=== PATIENT | female | born 1985 | race Asian ===

== ENCOUNTER 2016-12-18 19:38 | Emergency (ER) | payer OTHER ==
--- NOTE | 2016-12-18 19:45 | PDOC ---
History of Present Illness - General History Source: Patient Exam Limitations: No Limitations - History of Present Illness Initial Comments: 12/18/16 20:11 A portion of this note was documented by scribe services under my direction. I have reviewed the details of the note, within reason, and agree with the documentation. The case summary and management plan written by me. Assessment and plan: This is a 31-year-old female who comes in complaining of 3 days of the fever chills body aches sore throat and the lesions in her posterior oropharynx and mouth. Patient had rapid strep done that was negative Patient had a Monospot sent that wont be done until tomorrow. Patient's CBC otherwise showed a white count of 11.3 with no left shift. Given the lesions in patient's oropharynx and mouth most likely this is secondary to a coxsackie-type virus Patient was told to continue Tylenol and Motrin alternate them as often as every 3 hours as needed for pain and fevers and called the ER tomorrow afternoon for the result of her mono test. <Lisa Olivares I - Last Filed: 12/18/16 20:54> - General History Source: Patient Exam Limitations: No Limitations - History of Present Illness Initial Comments: 12/18/16 20:54 Patient is a 31 year old female with a significant past medical history of Gastroparises who presents to the ED with complaints of sore throat that began 3 days ago. Patient reports sore throat began saturday afternoon suddenly while at home. She reports experiencing fever secondary to sore throat. Patient states experiencing joint pains and what she states pins and needles in her bones secondary to sore throat. She reports experiencing fever and mouth sores secondary to sore throat. Patient states she has a Hx of strep throat. Denies chest pain, SOB. Denies chills, sweating. Denies contact with sick individuals, out of state travel. Denies any other symptoms. Allergies: None Surgical history: None Social history: No smoking. No alcohol. No illicit drugs. PMD: None <Justin Espinoza - Last Filed: 12/18/16 20:55> - General Chief Complaint: Pain Stated Complaint: FLU TYPE SYMPTOMS,SORE THROAT Time Seen by Provider: 12/18/16 19:45 Past History - Past Medical History Anemia: No Asthma: No Cancer: No Cardiac Disorders: No GI Disorders: Yes (GASTROPARISES) - Surgical History Abdominal Surgery: No Appendectomy: No Cardiac Surgery: No Cholecystectomy: No - Suicide/Smoking/Psychosocial Hx Smoking Status: No Smoking History: Never smoked Have you smoked in the past 12 months: No Number of Cigarettes Smoked Daily: 0 Hx Alcohol Use: No Drug/Substance Use Hx: No Hx Substance Use Treatment: No <Lisa Olivares I - Last Filed: 12/18/16 20:54> <Justin Espinoza - Last Filed: 12/18/16 20:55> - Past Medical History Allergies/Adverse Reactions: Allergies Allergy/AdvReac Type Severity Reaction Status Date / Time No Known Allergies Allergy Verified 12/18/16 19:39 Home Medications: Ambulatory Orders No Home Medications 0 dose .ROUTE UTDICT 07/09/12 Review of Systems - Review of Systems Able to Perform ROS?: Yes Comments:: 12/18/16 20:55 General: +Fever No chills, no weakness, no weight loss HEENT: +Sore throat. +Mouth sores. No change in vision. No ear pain CardioVascular: No chest pain or shortness of breath Respiratory:No cough, or wheezing. Gastrointestinal: no nausea, vomiting, diarrhea or constipation, No rectal bleeding Genitourinary: No dysuria, hematuria, or frequency Musculoskeletal: No joint or muscle pain or swelling Neurologic: No headache, vertigo, dizziness or loss of consciousness Psychiatric: nor depression Skin: No rashes or easy bruising Endocrine: no increased thirst or abnormal weight change Allergic: no skin or latex allergy All other systems reviewed and normal All Other Systems: Reviewed and Negative <Justin Espinoza - Last Filed: 12/18/16 20:55> *Physical Exam - Vital Signs Last Vital Signs Temp Pulse Resp BP Pulse Ox 99.1 F 98 H 16 124/74 100 12/18/16 19:42 12/18/16 19:42 12/18/16 19:42 12/18/16 19:42 12/18/16 19:42 - Physical Exam Comments: 12/18/16 20:55 GENERAL: The patient is awake, alert, and fully oriented, in no acute distress. HEAD: Normal with no signs of trauma. POSTERIOR OROPHARYNX: MOderate amount of erythema with vesicular lesions. + Vesicular lesions along base of tongue bilaterally. No exudates. NECK: submandibular lymphadenopathy bilaterally. EYES: Pupils equal, round and reactive to light, extraocular movements intact, sclera anicteric, conjunctiva clear. EXTREMITIES: Normal range of motion, no edema. NEUROLOGICAL: Normal speech, normal gait. PSYCH: Normal mood, normal affect. SKIN: Warm, Dry, normal turgor, no rashes or lesions noted. <Justin Espinoza - Last Filed: 12/18/16 20:55> ED Treatment Course - LABORATORY CBC & Chemistry Diagram: 12/18/16 20:05 <Lisa Olivares I - Last Filed: 12/18/16 20:54> - LABORATORY CBC & Chemistry Diagram: 12/18/16 20:05 - ADDITIONAL ORDERS Additional order review: 12/18/16 20:05 Group A Strep Rapid Antigen - Final Throat NEGATIVE FOR THE ANTIGEN OF BETA HEMOLYTIC STREP GROUP A 12/18/16 20:05 RBC 4.49 MCV 86.2 MCHC 34.0 RDW 12.1 MPV 7.8 Neutrophils % 71.3 Lymphocytes % 18.7 Monocytes % 8.8 Eosinophils % 0.7 Basophils % 0.5 - Medications Given in the ED: ED Medications Discontinued Medications Generic Name Dose Route Start Last Admin Trade Name Freq PRN Reason Stop Dose Admin Ibuprofen 600 mg 12/18/16 20:03 12/18/16 20:07 Motrin - PO 12/18/16 20:04 600 mg ONCE ONE Administration <Justin Espinoza - Last Filed: 12/18/16 20:55> *DC/Admit/Observation/Transfer <Lisa Olivares I - Last Filed: 12/18/16 20:54> - Attestations Scribe Attestion: 12/18/16 20:55 Documentation prepared by Justin Espinoza, acting as medical records technician for Lisa Olivares MD/DO. <Justin Espinoza - Last Filed: 12/18/16 20:55> Diagnosis at time of Disposition: Fever and chills Pharyngitis Qualifiers: Pharyngitis/tonsillitis etiology: Coxsackie virus Qualified Code(s): B08.5 - Enteroviral vesicular pharyngitis - Discharge Dispostion Disposition: HOME Condition at time of disposition: Stable - Patient Instructions Additional Instructions: The test we did for strep throat was negative however it is a rapid test and there is some false negative so it will be cultured and call in 2 days for the result of the culture. The Monospot will not be available until tomorrow afternoon U can call tomorrow afternoon for the result. Alternate acetaminophen with ibuprofen as often as every 3 hours for pain or fevers. You were given some prednisone in the emergency room this should help with the inflammatory response of your throat. Return to the emergency department immediately with ANY new, persistent or worsening symptoms. Continue any medications as previously prescribed by your physician. You should follow up with your primary doctor as soon as possible regarding today's emergency department visit. . Please make sure your doctor reviews the results of your emergency evaluation. Thank you for coming to the Emergency Department today for your care. It was a pleasure to see you today. Please note that your evaluation is INCOMPLETE until you follow-up with your doctor.
[2016-12-18 19:46] VITALS: BP 124/74; PULSE 98; TEMP 99.1; BMI 23.1
[2016-12-18] MEDS ORDERED: IBUPROFEN 600 MG TABLET (FP) PO ONE ×2 (20:03→20:06)
[2016-12-18 20:33] LABS: BASOPHIL 0.5 % (0-2.0); EOSINOPHIL 0.7 % (0-4.5); MCH 29.3 pg (25.7-33.7); MEAN CELL VOLUME 86.2 fl (80-96); MEAN PLT VOLUME 7.8 fl (7.5-11.1); NEUTROPHILS 71.3 % (42.8-82.8); PLATELET COUNT 285 K/MM3 (134-434); RDW 12.1 % (11.6-15.6); WHITE BLOOD COUNT 11.3 K/mm3 (4.0-10.8)
[2016-12-18] MEDS ORDERED: predniSONE 20 MG TABLET (UD) PO ONE (20:51)
[2016-12-18] MEDS ORDERED: predniSONE 20 MG TABLET (UD) ONE (21:00)
== END 2016-12-18 21:04 | disposition home or self-care (01) ==
LOC: FER 19:38
DX: B08.5 Enteroviral vesicular pharyngitis (principal); R50.9 Fever, unspecified; K92.9 Disease of digestive system, unspecified
CPT/HCPCS: 36415; 85025; 86308; 87070; 87430; 99281-25

== ENCOUNTER 2018-03-09 10:01 | Emergency (ER) | payer OTHER ==
--- NOTE | 2018-03-09 10:06 | PDOC ---
History of Present Illness - General Chief Complaint: Palpitations Stated Complaint: CHEST TIGHTNESS, PALPITATIONS. SOB Time Seen by Provider: 03/09/18 10:06 History Source: Patient, Old Records Exam Limitations: No Limitations - History of Present Illness Initial Comments: HPI: 32 y/o female presenting to [facility] complaining of chest tightness and palpitations. Pt states the chest tightness is episodic and progressive to the point where her bra becomes uncomfortable. Discomfort is localized to the sternum per pt. Endorses dry cough. Palpitations are brief and self resolving; lasts less than one minute. Estimates approx. 4 episodes per day. Unable to identify eliciting factors. Denies orthopnea, paroxysmal nocturnal dyspnea, or leg swelling. Denies recent surgeries, periods of immobilization, or calf tenderness. Pt takes control. Pts boyfriend, Dr. Kearns, expressed concern to the pt that she may have a PE. PCP: Dr. Larsen Medical Hx: - H/o Mitral Valve Regurgitation. Pt reports she had an Echo performed years ago but was never evaluated by a ticket sorter. Surgical Hx: - Pt denies past surgical history. Past History - Past Medical History Allergies/Adverse Reactions: Allergies Allergy/AdvReac Type Severity Reaction Status Date / Time No Known Allergies Allergy Verified 03/09/18 10:08 Home Medications: Ambulatory Orders No Home Medications 0 dose .ROUTE UTDICT 07/09/12 Control 03/09/18 Anemia: No Asthma: No Cancer: No Cardiac Disorders: No GI Disorders: Yes (GASTROPARISES) - Surgical History Abdominal Surgery: No Appendectomy: No Cardiac Surgery: No Cholecystectomy: No - Suicide/Smoking/Psychosocial Hx Smoking Status: No Smoking History: Never smoked Have you smoked in the past 12 months: No Number of Cigarettes Smoked Daily: 0 Hx Alcohol Use: No Drug/Substance Use Hx: No Substance Use Type: None Hx Substance Use Treatment: No Review of Systems - Review of Systems Able to Perform ROS?: Yes Comments:: In addition to that documented in the HPI above, the additional ROS was obtained : Constitutional: Denies fevers or chills Eyes: Denies vision changes ENMT: Denies sore throat CV: Endorses palpitations Resp: Endorses cough GI: Denies vomiting or diarrhea : Denies painful urination MSK: Endorses occasional leg cramping Skin: Denies new rashes Neuro: Denies new numbness or tingling or weakness Endocrine: Denies polyuria Heme: Denies bleeding or bruising *Physical Exam - Physical Exam Comments: Constitutional: Well-developed, well-nourished female in no acute distress or obvious discomfort. Found semi-fowlers on hospital bed. Initially observed walking unassisted into the department without difficulty or distress. Alert and oriented x4. Answered all questions appropriately and completely. Speech was non-labored, non-pressured. Head: Normocephalic. No obvious external signs of trauma. Eyes: Pupils 4mm and PERRL bilaterally. Sclerae white. Conjunctiva moist and not injected. EARS: Hearing grossly intact. NOSE: No nasal discharge. THROAT: Oral cavity and pharynx normal. No inflammation, swelling, exudate, or lesions. Teeth and gingiva in good general condition. Neck: Supple, trachea is midline. Cardiovascular/ Chest: Regular rate and regular rhythm. Clear heart tones. No murmur, rubs, clicks, or gallops. Peripheral pulses: radial pulses full. Anterior chest wall tenderness to palpation along R and L sternal border. Respiratory: Breathing unlabored. Equal chest rise and fall. Clear to auscultation bilaterally. No stridor, no wheezing, no rhonchi. Gastrointestinal: abdomen is soft, non-tender, non-distended. Neuro: Alert and oriented. Moving all four extremities spontaneously. Gait normal. Skin: Warm, dry, and intact. No bruising, rashes, or other lesions. Psych: Affect: appropriate. Mood: normal. ED Treatment Course - LABORATORY CBC & Chemistry Diagram: 03/09/18 10:55 03/09/18 10:55 Medical Decision Making - Medical Decision Making *Reviewed vital signs, nursing notes, and prior visit documentation (if available). 32 y/o previously healthy female presenting with reproducible anterior chest wall tenderness made worse with direct palpation and wearing a bra. Afebrile. Mildly tachycardic on triage vitals that resolved without intervention less than 10 minutes later. No tachypnea. Suspect costochondritis. Low suspicion for ACS, arrhythmia, PE, or pericardial effusion. Will administer ibuprofen. EKG: Sinus rhythm with a ventricular rate of 89 bpm. Normal axis. Normal intervals. No ST segment elevation or depression. No hyperacute T waves. No pathologic Q waves. Wells' Criteria for Pulmonary Embolism RESULT SUMMARY: 1.5 points Low risk group: 1.3% chance of PE in an ED population. Another study assigned scores ? 4 as PE Unlikely and had a 3% incidence of PE. INPUTS: Clinical signs and symptoms of DVT > 0 = No PE is #1 diagnosis OR equally likely > 0 = No Heart rate > 100 > 1.5 = Yes Immobilization at least 3 days OR surgery in the previous 4 weeks > 0 = No Previous, objectively diagnosed PE or DVT > 0 = No Hemoptysis > 0 = No Malignancy w/ treatment within 6 months or palliative > 0 = No Pt expressed further concern for PE to ED attending. Requested CTA to be further evaluated. Will obtain CBC, BMP, troponin, CTA, and urine . D- Dimer was not ordered as the test is a send out from this facility requiring >4 hours to result and pt requested radiologic study. CBC unremarkable for leukocytosis or anemia. BMP unremarkable for electrolyte derangement. eGFR >60. UPreg negative. CTA unremarkable for pulmonary embolism or acute pathology. Continue suspect costochondritis. Recommended OTC NSAIDs for symptom relief. Discussed imaging and laboratory results with pt. Answered all questions. Provided return precautions. Pt expressed verbal understanding and agreement with plan to discharge home with outpatient follow up. *DC/Admit/Observation/Transfer Diagnosis at time of Disposition: Chest pain, atypical - Discharge Dispostion Disposition: HOME Condition at time of disposition: Good Decision to Admit order: No - Referrals Referrals: Gonzalo Larsen MD [Primary Care Provider] - - Patient Instructions Printed Discharge Instructions: DI for Costochondritis Additional Instructions: You were seen today for chest pain. Your blood work, EKG, and xrays were normal today. Your symptoms are likely a condition for costochondritis. The pain should go away in the next several days. You can take over the counter Motrin or Advil as needed for pain. Take as directed on the package insert. Do not exceed the recommended dosage. You should follow up with your primary care doctor within the next week or as needed to make sure you are healing. You will need to call to make an appointment. Go to the nearest emergency department if your condition worsens or you feel like you need additional emergency evaluation. Print Language: LAO - Post Discharge Activity
[2018-03-09 10:27] VITALS: BP 140/87; PULSE 89; TEMP 98.8; BMI 22.4
[2018-03-09] MEDS ORDERED: IBUPROFEN 600 MG TABLET (FP) PO ONE ×2 (10:27→10:39)
--- NOTE | 2018-03-09 11:02 | PDOC ---
Attending Attestation - Resident Resident Name: Travis Alonzo - ED Attending Attestation I have performed the following: I have examined & evaluated the patient, The case was reviewed & discussed with the resident, I agree w/resident's findings & plan - HPI HPI: 03/09/18 10:56 32 y/o female with chest tightness and palpitations 4 days ago, denies fall or trauma or heavy lifting, now with some chest discomfort. Denies back pain, fever or chills. Mild cough. Has not taken anything for the pain. On BCP, non smoker, no long distance traveling, gets SOB occasionally doing minor things. As per her boyfriend who is a doctor he advised to have a CTA to r/o PE. No leg pain or swelling. Recent of her uncle 2 weeks ago. Sits for long periods. No hx of cancer. 03/09/18 11:17 - Physicial Exam PE: 03/09/18 11:02 VS stable HEENT: unremarkable HEART: RRR without murmur Lungs: CTA b/l no wheezes, rhonchi or rales, reproducible chest pain on palpation ABD: soft nontender +BS EXT: no C/C/E, no calf tenderness b/l Neuro: grossly intact, no focal deficits noted - Medical Decision Making 03/09/18 13:38 CT chest Neg for PE Will discharge home with Costochondritis Pt is in agreement with plan Marcie, rest EKG: rate 89, No STEMI Final Dx: Constochondritis In agreement with plan, discussed with Resident Dr. Alonzo
[2018-03-09 11:21] LABS: BASO % 0.4 % (0-2.0); EOS % 1.4 % (0-4.5); HEMATOCRIT 44.5 % (32.4-45.2); HEMOGLOBIN 15.1 GM/dl (10.7-15.3); MCH 29.6 pg (25.7-33.7); MCHC 33.8 g/dl (32.0-36.0); MEAN CELL VOLUME 87.5 fl (80-96); MEAN PLT VOLUME 8.1 fl (7.5-11.1); MONO % 3.9 % (3.8-10.2); NEUT % 68.3 % (42.8-82.8); PLATELET COUNT 322 K/MM3 (134-434); RBC 5.09 M/mm3 (3.60-5.2); RDW 11.9 % (11.6-15.6); WHITE BLOOD COUNT 9.9 K/mm3 (4.0-10.8)
[2018-03-09 11:22] LABS: ANION GAP 9 MMOL/L (8-16); BLOOD UREA NITROGEN 9 mg/dl (7-18); CALCIUM 9.7 mg/dl (8.4-10.2); CHLORIDE 104 mmol/L (98-107); CO2 24 mmol/L (22-28); CREATININE 0.8 mg/dl (0.6-1.3); GLUCOSE,RANDOM 99 mg/dl (74-106); POTASSIUM 4.3 mmol/L (3.5-5.1); SODIUM 137 mmol/L (136-145)
--- NOTE | 2018-03-09 11:28 | EKG ---
Test Reason : Blood Pressure : / mmHG Vent. Rate : 089 BPM Atrial Rate : 089 BPM P-R Int : 146 ms QRS Dur : 080 ms QT Int : 364 ms P-R-T Axes : 065 064 027 degrees QTc Int : 442 ms NORMAL SINUS RHYTHM NORMAL ECG NO PREVIOUS ECGS AVAILABLE Confirmed by TASIA GARNICA, MARSHALL ([id number]) on 03/09/2018 11:27:47 AM Referred By: NICKI GIVENS Confirmed By:MARSHALL DOZIER MD
== END 2018-03-09 13:43 | disposition home or self-care (01) ==
LOC: FER 10:01
DX: R07.89 Other chest pain (principal)
CPT/HCPCS: 36415; 71275-TC; 80048; 84484; 84703; 85025; 93005; 99284-25

== ENCOUNTER 2019-12-27 09:39 | Emergency (ER) | payer OTHER ==
--- OUTSIDE RECORDS SUMMARY | 2019-12-27 09:45 | XMS ---
:1985 Author Organization [facility] Support Name Relationship Address Phone [facility] [place] [facility] Unavailable [address] [place] [address] [facility] Unavailable [address] [place] [address] [address]TA[address] PH [phone] [place] [address] CECIL MONTAÑO [address] [place] [place] [address] Re-disclosure Warning The records that you are about to access may contain information from federally- assisted alcohol or drug abuse programs. If such information is present, then the following federally mandated warning applies: This information has been disclosed to you from records protected by federal confidentiality rules (42 CFR part 2). The federal rules prohibit you from making any further disclosure of this information unless further disclosure is expressly permitted by the written consent of the person to whom it pertains or as otherwise permitted by 42 CFR part 2. A general authorization for the release of medical or other information is NOT sufficient for this purpose. The Federal rules restrict any use of the information to criminally investigate or prosecute any alcohol or drug abuse patient.The records that you are about to access may contain highly sensitive health information, the redisclosure of which is protected by Article 27-F of the [facility] Public Health law. If you continue you may haveaccess to information: Regarding HIV / AIDS; Provided by facilities licensed or operated by the [facility] Office of Mental Health; or Provided by the [facility] Office for People With Developmental Disabilities. If such information is present, then the following [facility] mandated warning applies: This information has been disclosed to you from confidential records which are protected by state law. State law prohibits you from making any further disclosure of this information without the specific written consent of the person to whom it pertains, or as otherwise permitted by law. Any unauthorized further disclosure in violation of state law may result in a fine or mcfp sentence or both. A general authorization for the release of medical or other information is NOT sufficient authorization for further disclosure. Insurance Providers Payer name Policy type Policy ID Covered Covered libertarian's Policy P amanda / Coverage libertarian ID relationship to Eid Inf ormation type eid LOCAL [id number] - [id number] [facility] [id number] Results ID Date Data Source [id number] 08/22/2019 01:30:00 PM EDT [facility] Name Value Range Interpretation Description Data Sup porting Code Source(s) Document(s ) SARS [facility] CORONAVIRUS 2 RNA This lab was ordered by [facility] and reported by [facility]. Procedure
--- NOTE | 2019-12-27 10:02 | TELE ---
HPI - General Reason For Visit: COVID TESTING History Source: Patient Exam Limitations: No Limitations - History of Present Illness Associated Symptoms: reports: denies symptoms 12/27/19 10:00 Patient with no significant past medical history present to [facility] for Covid testing for travel to [place] in 6 days. Patient denies any symptoms and denies any sick contact. Denies cough, shortness of breath. Patient repor ts she is required to have a negative Covid test within 5 days of travel to be allowed entry into the [place]. Denies any other symptoms Past History - Medical History Allergies/Adverse Reactions: Allergies Allergy/AdvReac Type Severity Reaction Status Date / Time No Known Allergies Allergy Verified 03/09/18 10:08 Home Medications: Ambulatory Orders Ketorolac Tromethamine [Toradol] 10 mg PO Q6H #28 tablet 08/24/19 Anemia: No Asthma: No Cancer: No Cardiac Disorders: No COPD: No GI Disorders: Yes (GASTROPARESIS) - Surgical History Abdominal Surgery: No Appendectomy: Yes (08/22/2019) Cardiac Surgery: No Cholecystectomy: No - Psycho-Social/Smoking History Smoking Status: No Smoking History: Never smoked Have you smoked in the past 12 months: No Number of Cigarettes Smoked Daily: 0 Review of Systems - Review of Systems Able to Perform ROS?: Yes Limited Mexican proficient: No Constitutional: No: Chills, Fever, Malaise HEENTM: No: Symptoms Reported, See HPI, Eye Pain, Blurred Vision, Tearing, Recent change in vision, Double Vision, Cataracts, Ear Pain, Ocular Prothesis, Ear Discharge, Nose Pain, Nose Congestion, Tinnitus, Nose Bleeding, Hearing Loss, Throat Pain, Throat Swelling, Mouth Pain, Dental Problems, Difficulty Swallowing, Mouth Swelling, Other Respiratory: No: Symptoms reported, See HPI, Cough, Orthopnea, Shortness of Breath, SOB with Exertion, SOB at Rest, Stridor, Wheezing, Productive cough, Hemoptysis, Other Cardiac (ROS): No: Symptoms Reported, See HPI, Chest Pain, Edema, Irregular Heart Rate, Lightheadedness, Palpitations, Syncope, Chest Tightness, Other ABD/GI: No: Symptoms Reported, Nausea, Vomiting Musculoskeletal: No: Symptoms Reported Integumentary: No: Symptoms Reported Neurological: No: Symptoms reported All Other Systems: Reviewed and Negative *Physical Exam - Physical Exam General Appearance: Yes: Nourished, Appropriately Dressed. No: Apparent Distress HEENT: positive: Normal ENT Inspection Respiratory/Chest: negative: Normal Breath Sounds, Respiratory Distress Musculoskeletal: positive: Normal Inspection Extremity: positive: Normal Inspection, Normal Range of Motion Integumentary: positive: Normal Color Neurologic: positive: Fully Oriented, Alert, Normal Mood/Affect, Normal Response, Motor Strength 07/13 - Medical Decision Making 12/27/19 10:01 Patient with no significant past medical history present to [facility] for Covid testing for travel to [place] in 6 days. Patient denies any symptoms and denies any sick contact. Denies cough, shortness of breath. Patient reports she is required to have a negative Covid test within 5 days of travel to be allowed entry into the [place]. Denies any other symptoms Patient asymptomatic at this time. Given today is 6 days out for patient's date of travel, will put in order for Covid test for tomorrow for patient to go to [employer] drive-through testing center tomorrow for Covid testing. Patient stable for discharge Discharge Diagnosis at time of Disposition: Counseled about COVID-19 virus infection - Referrals Follow-up Referral(s): Gonzalo Larsen MD [Primary Care Provider] - - Patient Instructions - Discharge Disposition: HOME Condition at time of Disposition: Stable
== END 2019-12-27 10:04 | disposition home or self-care (01) ==
LOC: JVIRT 09:39
DX: Z03.818 Encounter for observation for suspected exposure to other biological agents ruled out (principal)
CPT/HCPCS: C9803; Q3014-GT; U0003

== ENCOUNTER 2022-10-27 23:36 | Emergency (ER) | payer OTHER ==
[2022-10-27 23:44] VITALS: BP 134/86; PULSE 80; RESP 18; TEMP 98.2; BMI 26.2
[2022-10-28] MEDS ORDERED: AMOX TR/POT CLAV 875MG/125MG TABLETS (FP) PO ONE (00:09)
[2022-10-28] MEDS ORDERED: AMOX TR/POT CLAV 875MG/125MG TABLETS (FP) ONE (00:17)
== END 2022-10-28 00:20 | disposition home or self-care (01) ==
LOC: JER 23:36
DX: L03.213 Periorbital cellulitis (principal); H57.89 Other specified disorders of eye and adnexa; H57.11 Ocular pain, right eye
CPT/HCPCS: 99283-25